=== PATIENT | female | born 1970 | race Caucasian/White ===

== ENCOUNTER 2018-07-24 14:14 | Inpatient (IN) | payer OTHER ==
[2018-07-24 18:38] LABS: ADD MAN DIFF? NO
[2018-07-24 18:40] LABS: WHITE BLOOD COUNT 7.1 10^3/ul (4.8-10.8)
[2018-07-24 18:40] LABS: BASOPHIL # 0.1 10^3/ul (0.0-0.1); BASOPHILS % 0.8 % (0.0-2.0); EOSINOPHILS # 0.1 10^3/ul (0.0-0.5); EOSINOPHILS % 1.4 % (0.0-7.0); HEMATOCRIT 42.5 % (37.0-47.0); HEMOGLOBIN 13.3 g/dl (12.0-16.0); LYMPHOCYTES # 2.9 10^3/ul (0.8-2.9); MEAN CORPUSCULAR HEMOGLOBIN 28.8 pg (29.0-33.0); MEAN CORPUSCULAR HGB CONC 31.3 g/dl (32.0-37.0); MEAN PLATELET VOLUME 9.3 fl (7.4-10.4); MONOCYTE # 0.4 10^3/ul (0.3-0.9); NEUTROPHIL # 3.7 10^3/ul (1.6-7.5); NEUTROPHILS % 52.5 % (39.0-77.0); PLATELET COUNT 378 10^3/UL (140-415); RED BLOOD COUNT 4.62 10^6/ul (4.20-5.40); RED CELL DISTRIBUTION WIDTH 14.4 % (11.5-14.5)
[2018-07-24 18:43] LABS: ADD UMIC YES; UR ASCORBIC ACID NEGATIVE (NEGATIVE); UR BACTERIA FEW /HPF (NONE SEEN); UR BILIRUBIN (Dip) NEGATIVE (NEGATIVE); UR BLOOD (Dip) 3+ mg/dL (NEGATIVE); UR CLARITY SLIGHTLY CLOUDY (CLEAR); UR COLOR YELLOW (YELLOW); UR GLUCOSE (Dip) NEGATIVE (NEGATIVE); UR KETONES (Dip) NEGATIVE (NEGATIVE); UR LEUKOCYTE ESTERASE (Dip) 1+ Leu/ul (NEGATIVE); UR MUCUS MANY /HPF (NONE SEEN); UR NITRITE (Dip) NEGATIVE (NEGATIVE); UR RBC 3 /HPF (0-5); UR SPECIFIC GRAVITY (Dip) 1.027 (1.003-1.030); UR SQUAMOUS EPITHELIAL CELL FEW /HPF (FEW); UR TOTAL PROTEIN (Dip) NEGATIVE (NEGATIVE); UR UROBILINOGEN (Dip) NEGATIVE (NEGATIVE); UR WBC 19 /HPF (0-5)
[2018-07-24 19:00] LABS: INR 0.88; PT RATIO 0.9
[2018-07-24 19:01] LABS: PARTIAL THROMBOPLASTIN TIME 26.8 Sec (23.0-35.0)
[2018-07-24 19:06] LABS: ALBUMIN 4.7 g/dl (3.3-4.9); ALBUMIN/GLOBULIN RATIO 1.34; ALKALINE PHOSPHATASE 94 IU/L (42-121); ANION GAP 11 (5-13); ASPARTATE AMINO TRANSFERASE 24 IU/L (15-46); BILIRUBIN,INDIRECT 0.2 mg/dl (0-1.1); BILIRUBIN,TOTAL 0.2 mg/dl (0.2-1.3); BLOOD UREA NITROGEN 26 mg/dl (7-20); CALCIUM 9.9 mg/dl (8.4-10.2); CARBON DIOXIDE 28 mmol/L (21-31); CHLORIDE 102 mmol/L (97-110); Estimated GFR > 60 mL/min (>60); GLUCOSE 99 mg/dl (70-220); SODIUM 141 mmol/L (135-144); TOTAL PROTEIN 8.2 g/dl (6.1-8.1)
[2018-07-24 19:10] LABS: ALANINE AMINOTRANSFERASE < 6 IU/L (13-69)
[2018-07-24] MEDS: ONDANSETRON 4 MG INJ IV (19:31)
[2018-07-24] MEDS: CEFTRIAXONE 1 GM/50 ML (PMX) 50 ML IVPB (19:31)
[2018-07-24] MEDS: HYDROmorphONE 0.5 MG/0.5 ML SYG IV ×2 (19:35→23:16)
[2018-07-24] MEDS ORDERED: METOCLOPRAMIDE 10 MG TAB PO (22:00)
[2018-07-24] MEDS: LAMOTRIGINE 100 MG TAB PO (23:18)
[2018-07-25] MEDS: ACETAMINOPHEN 325 MG TAB PO (05:46)
[2018-07-25] MEDS: HYDROmorphONE 0.5 MG/0.5 ML SYG IV ×4 (08:53→22:12)
[2018-07-25] MEDS: LAMOTRIGINE 100 MG TAB PO ×2 (08:53→21:07)
[2018-07-25] MEDS: DOCUSATE SODIUM 100 MG CAP PO ×2 (08:54→21:08)
[2018-07-25] MEDS: KETOROLAC 30 MG INJ IM (09:39)
[2018-07-25] MEDS: METOCLOPRAMIDE 10 MG INJ IV (11:44)
[2018-07-25] MEDS: HYDROmorphONE 1 MG/ML SYG IV (11:44)
[2018-07-25] MEDS ORDERED: DOCUSATE SODIUM 100 MG CAP PO ×2 (17:00→21:00)
[2018-07-25] MEDS ORDERED: LAMOTRIGINE 100 MG TAB PO (21:00)
[2018-07-25] MEDS: FAMOTIDINE 20 MG TAB PO (21:08)
[2018-07-25] MEDS: OXYCODONE/ACETAMINOPHEN (5/325) TAB PO (23:26)
[2018-07-26] MEDS: HYDROmorphONE 0.5 MG/0.5 ML SYG IV ×3 (04:50→21:12)
[2018-07-26 05:24] LABS: ADD MAN DIFF? NO
[2018-07-26 05:33] LABS: BASOPHILS % 0.5 % (0.0-2.0); EOSINOPHILS # 0.1 10^3/ul (0.0-0.5); EOSINOPHILS % 1.1 % (0.0-7.0); HEMATOCRIT 40.6 % (37.0-47.0); HEMOGLOBIN 12.7 g/dl (12.0-16.0); LYMPHOCYTES # 2.7 10^3/ul (0.8-2.9); LYMPHOCYTES % 42.2 % (15.0-51.0); MEAN CORPUSCULAR HEMOGLOBIN 28.8 pg (29.0-33.0); MEAN CORPUSCULAR HGB CONC 31.3 g/dl (32.0-37.0); MEAN CORPUSCULAR VOLUME 92.1 fl (82.0-101.0); MEAN PLATELET VOLUME 9.3 fl (7.4-10.4); MONOCYTE # 0.4 10^3/ul (0.3-0.9); MONOCYTES % 5.8 % (0.0-11.0); NEUTROPHIL # 3.3 10^3/ul (1.6-7.5); NEUTROPHILS % 50.2 % (39.0-77.0); PLATELET COUNT 360 10^3/UL (140-415); RED BLOOD COUNT 4.41 10^6/ul (4.20-5.40); RED CELL DISTRIBUTION WIDTH 13.7 % (11.5-14.5)
[2018-07-26 05:33] LABS: WHITE BLOOD COUNT 6.5 10^3/ul (4.8-10.8)
[2018-07-26 06:27] LABS: ALANINE AMINOTRANSFERASE 20 IU/L (13-69); ALBUMIN 3.8 g/dl (3.3-4.9); ALBUMIN/GLOBULIN RATIO 1.22; ALKALINE PHOSPHATASE 63 IU/L (42-121); ANION GAP 13 (5-13); ASPARTATE AMINO TRANSFERASE 18 IU/L (15-46); BILIRUBIN,INDIRECT 0.3 mg/dl (0-1.1); BILIRUBIN,TOTAL 0.3 mg/dl (0.2-1.3); BLOOD UREA NITROGEN 19 mg/dl (7-20); CALCIUM 9.4 mg/dl (8.4-10.2); CARBON DIOXIDE 31 mmol/L (21-31); CHLORIDE 100 mmol/L (97-110); CREATININE 0.84 mg/dl (0.44-1.00); Estimated GFR > 60 mL/min (>60); GLUCOSE 101 mg/dl (70-220); POTASSIUM 4.2 mmol/L (3.5-5.1); SODIUM 144 mmol/L (135-144); TOTAL PROTEIN 6.9 g/dl (6.1-8.1)
[2018-07-26] MEDS: OXYCODONE/ACETAMINOPHEN (5/325) TAB PO ×2 (07:39→17:04)
[2018-07-26] MEDS: ENOXAPARIN 30 MG/0.3 ML SYG SC (08:55)
[2018-07-26] MEDS: FAMOTIDINE 20 MG TAB PO ×2 (08:55→21:12)
[2018-07-26] MEDS: DOCUSATE SODIUM 100 MG CAP PO ×2 (08:55→21:12)
[2018-07-26] MEDS: LAMOTRIGINE 100 MG TAB PO ×2 (08:56→21:12)
[2018-07-26] MEDS: BISACODYL (EC) 5 MG TAB PO (09:02)
[2018-07-26] MEDS: METOCLOPRAMIDE 10 MG INJ IV (19:04)
[2018-07-27] MEDS: BISACODYL (EC) 5 MG TAB PO (08:19)
[2018-07-27] MEDS: LAMOTRIGINE 100 MG TAB PO ×2 (08:19→21:08)
[2018-07-27] MEDS: FAMOTIDINE 20 MG TAB PO ×2 (08:19→21:08)
[2018-07-27] MEDS: DOCUSATE SODIUM 100 MG CAP PO ×2 (08:19→21:00)
[2018-07-27] MEDS: ENOXAPARIN 30 MG/0.3 ML SYG SC (08:23)
[2018-07-27] MEDS: HYDROmorphONE 0.5 MG/0.5 ML SYG IV ×3 (12:01→23:27)
[2018-07-27] MEDS: OXYCODONE/ACETAMINOPHEN (5/325) TAB PO (15:20)
[2018-07-28] MEDS: HYDROmorphONE 0.5 MG/0.5 ML SYG IV ×3 (04:14→22:20)
[2018-07-28] MEDS: ENOXAPARIN 30 MG/0.3 ML SYG SC (09:00)
[2018-07-28] MEDS: FAMOTIDINE 20 MG TAB PO ×2 (09:10→20:53)
[2018-07-28] MEDS: LAMOTRIGINE 100 MG TAB PO ×2 (09:11→20:53)
[2018-07-28] MEDS: DOCUSATE SODIUM 100 MG CAP PO ×2 (09:11→20:53)
[2018-07-28] MEDS: OXYCODONE/ACETAMINOPHEN (5/325) TAB PO ×2 (13:56→23:45)
[2018-07-28] MEDS: BISACODYL (EC) 5 MG TAB PO (18:05)
[2018-07-28] MEDS: METOCLOPRAMIDE 10 MG INJ IV (22:20)
[2018-07-29] MEDS: HYDROmorphONE 0.5 MG/0.5 ML SYG IV ×6 (02:47→23:52)
[2018-07-29] MEDS ORDERED: SUGAMMADEX SODIUM 200 MG/2 ML VIAL IV (07:00)
[2018-07-29] MEDS: ENOXAPARIN 30 MG/0.3 ML SYG SC (09:00)
[2018-07-29] MEDS: FAMOTIDINE 20 MG TAB PO ×2 (09:00→21:00)
[2018-07-29] MEDS: LAMOTRIGINE 100 MG TAB PO ×2 (09:22→21:00)
[2018-07-29] MEDS: DOCUSATE SODIUM 100 MG CAP PO ×2 (09:22→21:00)
[2018-07-29] MEDS: OXYCODONE/ACETAMINOPHEN (5/325) TAB PO (09:32)
[2018-07-29] MEDS ORDERED: HEPARIN 1000 UNITS/ML 10 ML INJ (19:41)
[2018-07-29] MEDS ORDERED: SODIUM CL BACTERIOSTATIC 30 ML INJ (19:41)
[2018-07-29] MEDS ORDERED: PROPOFOL 20 ML (19:51)
[2018-07-29] MEDS ORDERED: ROCURONIUM 50 MG INJ (19:51)
[2018-07-29] MEDS ORDERED: MIDAZOLAM 1 MG/ML 2 ML INJ (19:52)
[2018-07-29] MEDS ORDERED: LIDOCAINE 1% (MDV) 20 ML INJ (19:53)
[2018-07-29] MEDS ORDERED: CEFAZOLIN 1 GM INJ (20:25)
[2018-07-29] MEDS ORDERED: ONDANSETRON 4 MG INJ (20:26)
[2018-07-29] MEDS ORDERED: DEXAMETHASONE 4 MG/ML 5 ML INJ (20:26)
[2018-07-29] MEDS ORDERED: hydrALAzine 20 MG INJ (21:01)
[2018-07-29] MEDS ORDERED: ROPIVACAINE 0.5 % 30 ML VIAL (21:48)
[2018-07-29] MEDS ORDERED: GLYCOPYRROLATE 0.4 MG INJ (22:12)
[2018-07-29] MEDS ORDERED: NEOSTIGMINE 3 MG/3 ML SYRINGE (22:12)
[2018-07-29] MEDS ORDERED: FENTAnyl 50 MCG/ML VIAL (22:14)
[2018-07-29] MEDS ORDERED: HYDROmorphONE 0.5 MG/0.5 ML SYG IV ×2 (23:00)
[2018-07-29] MEDS ORDERED: LABETALOL HCL 20MG INJ IV (23:00)
[2018-07-29] MEDS ORDERED: hydrALAzine 20 MG INJ IV (23:00)
[2018-07-29] MEDS: CEFAZOLIN 1 GM INJ (23:31)
[2018-07-29] MEDS: HEMOSTATIC MATRIX SYG ZFS (23:32)
[2018-07-29] MEDS: THROMBIN 5000 UNIT VIAL (23:32)
[2018-07-29] MEDS: GELATIN SIZE 100 SPONGE (23:32)
[2018-07-30] MEDS: HYDROmorphONE 0.5 MG/0.5 ML SYG IV ×3 (00:08→04:08)
[2018-07-30 04:58] LABS: ADD MAN DIFF? NO
[2018-07-30 05:01] LABS: ABNORMAL IP MESSAGE 1; BASOPHILS % 0.3 % (0.0-2.0); HEMOGLOBIN 13.3 g/dl (12.0-16.0); LYMPHOCYTES # 0.6 10^3/ul (0.8-2.9); LYMPHOCYTES % 5.7 % (15.0-51.0); MEAN CORPUSCULAR HEMOGLOBIN 28.7 pg (29.0-33.0); MEAN CORPUSCULAR HGB CONC 31.7 g/dl (32.0-37.0); MEAN CORPUSCULAR VOLUME 90.7 fl (82.0-101.0); MEAN PLATELET VOLUME 9.1 fl (7.4-10.4); MONOCYTE # 0.4 10^3/ul (0.3-0.9); MONOCYTES % 3.7 % (0.0-11.0); NEUTROPHIL # 8.8 10^3/ul (1.6-7.5); NEUTROPHILS % 89.7 % (39.0-77.0); PLATELET COUNT 378 10^3/UL (140-415); RED BLOOD COUNT 4.63 10^6/ul (4.20-5.40); RED CELL DISTRIBUTION WIDTH 13.7 % (11.5-14.5)
[2018-07-30 05:01] LABS: WHITE BLOOD COUNT 9.8 10^3/ul (4.8-10.8)
[2018-07-30 05:26] LABS: ALANINE AMINOTRANSFERASE 24 IU/L (13-69); ALBUMIN 4.3 g/dl (3.3-4.9); ALBUMIN/GLOBULIN RATIO 1.22; ALKALINE PHOSPHATASE 71 IU/L (42-121); ANION GAP 14 (5-13); ASPARTATE AMINO TRANSFERASE 30 IU/L (15-46); BILIRUBIN,INDIRECT 0.3 mg/dl (0-1.1); BILIRUBIN,TOTAL 0.3 mg/dl (0.2-1.3); BLOOD UREA NITROGEN 18 mg/dl (7-20); CALCIUM 9.6 mg/dl (8.4-10.2); CARBON DIOXIDE 28 mmol/L (21-31); CHLORIDE 99 mmol/L (97-110); CREATININE 0.82 mg/dl (0.44-1.00); Estimated GFR > 60 mL/min (>60); GLUCOSE 156 mg/dl (70-220); POTASSIUM 4.5 mmol/L (3.5-5.1); SODIUM 141 mmol/L (135-144); TOTAL PROTEIN 7.8 g/dl (6.1-8.1)
[2018-07-30 05:48] LABS: POSITIVE DIFF @See below
[2018-07-30] MEDS: HYDROmorphONE 1 MG/ML SYG IV ×5 (06:15→21:16)
[2018-07-30] MEDS: DOCUSATE SODIUM 100 MG CAP PO ×2 (08:13→20:14)
[2018-07-30] MEDS: LAMOTRIGINE 100 MG TAB PO ×2 (08:13→20:15)
[2018-07-30] MEDS: FAMOTIDINE 20 MG TAB PO ×2 (08:13→20:14)
[2018-07-30] MEDS ORDERED: GLYCOPYRROLATE 0.4 MG INJ (12:20)
[2018-07-30] MEDS ORDERED: PROPOFOL 20 ML (12:20)
[2018-07-30] MEDS ORDERED: CEFAZOLIN 1 GM INJ (12:20)
[2018-07-30] MEDS ORDERED: MIDAZOLAM 1 MG/ML 2 ML INJ (12:20)
[2018-07-30] MEDS ORDERED: ROCURONIUM 50 MG INJ (12:20)
[2018-07-30] MEDS ORDERED: NEOSTIGMINE 3 MG/3 ML SYRINGE (12:20)
[2018-07-30] MEDS ORDERED: DEXAMETHASONE 4 MG/ML 5 ML INJ (12:21)
[2018-07-30] MEDS ORDERED: FENTAnyl 50 MCG/ML VIAL (12:21)
[2018-07-30] MEDS ORDERED: ONDANSETRON 4 MG INJ (12:21)
[2018-07-30] MEDS: POLYMYXIN/BACITRACIN 1L IRRIG (13:27)
[2018-07-30] MEDS: ROPIVACAINE 0.5 % 30 ML VIAL ×2 (13:31)
[2018-07-30] MEDS: GELATIN SIZE 100 SPONGE (14:17)
[2018-07-30] MEDS: THROMBIN 5000 UNIT VIAL (14:17)
[2018-07-30] MEDS ORDERED: SUGAMMADEX SODIUM 200 MG/2 ML VIAL IV (14:41)
[2018-07-30] MEDS ORDERED: ALBUTEROL 0.083% (NEB) 2.5 MG/3 ML AMP HHN (15:00)
[2018-07-30] MEDS ORDERED: HALOPERIDOL 5 MG INJ IV (15:00)
[2018-07-30] MEDS ORDERED: MIDAZOLAM 1 MG/ML 2 ML INJ IV (15:00)
[2018-07-30] MEDS ORDERED: TRIMETHOBENZAMIDE 100 MG/ML VIAL IM (15:00)
[2018-07-30] MEDS ORDERED: ONDANSETRON 4 MG INJ IV (15:00)
[2018-07-30] MEDS ORDERED: IPRATROPIUM (NEB) 0.5 MG/2.5 ML AMP HHN (15:00)
[2018-07-30] MEDS ORDERED: MEPERIDINE 25 MG INJ IV (15:00)
[2018-07-30] MEDS ORDERED: DIPHENHYDRAMINE 50 MG INJ IV (15:00)
[2018-07-30] MEDS ORDERED: METOCLOPRAMIDE 10 MG INJ IV (15:00)
[2018-07-30] MEDS ORDERED: LABETALOL HCL 20MG INJ IV (15:00)
[2018-07-30] MEDS ORDERED: HYDROmorphONE 0.5 MG/0.5 ML SYG IV ×3 (15:00)
[2018-07-30] MEDS ORDERED: EPHEDrine SULFATE 50 MG/5 ML SYG IV (15:00)
[2018-07-30] MEDS ORDERED: FENTAnyl 50 MCG/ML VIAL IV ×3 (15:00)
[2018-07-30] MEDS ORDERED: hydrALAzine 20 MG INJ IV (15:00)
[2018-07-30] MEDS: CEFAZOLIN 2 GM/50 ML (PMX) 50 ML IVPB (16:33)
[2018-07-30] MEDS: OXYCODONE/ACETAMINOPHEN (5/325) TAB PO ×2 (16:39→20:27)
[2018-07-31] MEDS: CEFAZOLIN 2 GM/50 ML (PMX) 50 ML IVPB ×4 (00:12→21:27)
[2018-07-31] MEDS: HYDROmorphONE 1 MG/ML SYG IV ×3 (00:31→14:06)
[2018-07-31] MEDS: OXYCODONE/ACETAMINOPHEN (5/325) TAB PO ×2 (02:41→07:08)
[2018-07-31 05:30] LABS: ADD MAN DIFF? NO
[2018-07-31 05:51] LABS: BASOPHILS % 0.3 % (0.0-2.0); HEMATOCRIT 33.4 % (37.0-47.0); HEMOGLOBIN 10.5 g/dl (12.0-16.0); LYMPHOCYTES # 1.3 10^3/ul (0.8-2.9); LYMPHOCYTES % 16.8 % (15.0-51.0); MEAN CORPUSCULAR HEMOGLOBIN 28.8 pg (29.0-33.0); MEAN CORPUSCULAR HGB CONC 31.4 g/dl (32.0-37.0); MEAN CORPUSCULAR VOLUME 91.5 fl (82.0-101.0); MEAN PLATELET VOLUME 9.6 fl (7.4-10.4); MONOCYTE # 0.8 10^3/ul (0.3-0.9); MONOCYTES % 10.3 % (0.0-11.0); NEUTROPHIL # 5.5 10^3/ul (1.6-7.5); NEUTROPHILS % 72.1 % (39.0-77.0); PLATELET COUNT 311 10^3/UL (140-415); RED BLOOD COUNT 3.65 10^6/ul (4.20-5.40); RED CELL DISTRIBUTION WIDTH 13.8 % (11.5-14.5)
[2018-07-31 05:51] LABS: WHITE BLOOD COUNT 7.6 10^3/ul (4.8-10.8)
[2018-07-31 05:59] LABS: ANION GAP 9 (5-13); BLOOD UREA NITROGEN 11 mg/dl (7-20); CALCIUM 8.9 mg/dl (8.4-10.2); CARBON DIOXIDE 33 mmol/L (21-31); CHLORIDE 99 mmol/L (97-110); CREATININE 0.54 mg/dl (0.44-1.00); Estimated GFR > 60 mL/min (>60); GLUCOSE 114 mg/dl (70-220); POTASSIUM 4.5 mmol/L (3.5-5.1); SODIUM 141 mmol/L (135-144)
[2018-07-31] MEDS: LAMOTRIGINE 100 MG TAB PO ×2 (08:23→21:27)
[2018-07-31] MEDS: DOCUSATE SODIUM 100 MG CAP PO ×2 (08:23→21:27)
[2018-07-31] MEDS: FAMOTIDINE 20 MG TAB PO ×2 (08:23→21:27)
[2018-07-31] MEDS: KETOROLAC 15 MG INJ IV ×2 (12:24→17:43)
[2018-07-31] MEDS: OXYCODONE/ACETAMINOPHEN (10/325) TAB PO ×2 (18:44→22:14)
[2018-08-01] MEDS: KETOROLAC 15 MG INJ IV ×4 (00:39→18:20)
[2018-08-01] MEDS: OXYCODONE/ACETAMINOPHEN (10/325) TAB PO ×5 (03:53→20:20)
[2018-08-01 05:13] LABS: ADD MAN DIFF? NO
[2018-08-01] MEDS: CEFAZOLIN 2 GM/50 ML (PMX) 50 ML IVPB ×3 (05:13→22:10)
[2018-08-01] MEDS: BISACODYL (EC) 5 MG TAB PO (05:13)
[2018-08-01 05:16] LABS: BASOPHILS % 0.5 % (0.0-2.0); EOSINOPHILS # 0.3 10^3/ul (0.0-0.5); EOSINOPHILS % 3.3 % (0.0-7.0); HEMATOCRIT 31.6 % (37.0-47.0); HEMOGLOBIN 9.9 g/dl (12.0-16.0); LYMPHOCYTES # 2.7 10^3/ul (0.8-2.9); LYMPHOCYTES % 32.3 % (15.0-51.0); MEAN CORPUSCULAR HEMOGLOBIN 28.8 pg (29.0-33.0); MEAN CORPUSCULAR HGB CONC 31.3 g/dl (32.0-37.0); MEAN CORPUSCULAR VOLUME 91.9 fl (82.0-101.0); MEAN PLATELET VOLUME 9.7 fl (7.4-10.4); MONOCYTE # 0.7 10^3/ul (0.3-0.9); MONOCYTES % 8.9 % (0.0-11.0); NEUTROPHIL # 4.5 10^3/ul (1.6-7.5); NEUTROPHILS % 54.8 % (39.0-77.0); PLATELET COUNT 308 10^3/UL (140-415); RED BLOOD COUNT 3.44 10^6/ul (4.20-5.40); RED CELL DISTRIBUTION WIDTH 14.4 % (11.5-14.5)
[2018-08-01 05:16] LABS: WHITE BLOOD COUNT 8.3 10^3/ul (4.8-10.8)
[2018-08-01 05:36] LABS: ANION GAP 7 (5-13); BLOOD UREA NITROGEN 20 mg/dl (7-20); CARBON DIOXIDE 31 mmol/L (21-31); CHLORIDE 102 mmol/L (97-110); CREATININE 0.74 mg/dl (0.44-1.00); Estimated GFR > 60 mL/min (>60); GLUCOSE 97 mg/dl (70-220); POTASSIUM 3.9 mmol/L (3.5-5.1); SODIUM 140 mmol/L (135-144)
[2018-08-01] MEDS: FAMOTIDINE 20 MG TAB PO ×2 (10:03→20:20)
[2018-08-01] MEDS: DOCUSATE SODIUM 100 MG CAP PO ×2 (10:03→20:20)
[2018-08-01] MEDS: LAMOTRIGINE 100 MG TAB PO ×2 (10:07→20:21)
[2018-08-02] MEDS: KETOROLAC 15 MG INJ IV ×4 (00:09→17:34)
[2018-08-02] MEDS: OXYCODONE/ACETAMINOPHEN (10/325) TAB PO ×5 (00:12→16:52)
[2018-08-02] MEDS: CEFAZOLIN 2 GM/50 ML (PMX) 50 ML IVPB (06:11)
[2018-08-02] MEDS: MAGNESIUM HYDROXIDE 30ML CUP PO (08:30)
[2018-08-02] MEDS: FAMOTIDINE 20 MG TAB PO (08:30)
[2018-08-02] MEDS: LAMOTRIGINE 100 MG TAB PO (08:31)
[2018-08-02] MEDS: DOCUSATE SODIUM 100 MG CAP PO (08:31)
== END 2018-08-02 18:30 | disposition home or self-care (01) | DRG 454 ==
LOC: MS1 08-01 04:10 → FTE 14:14 → ICU 07-29 22:32 → MS1 18:04
PROC: 0SG00A0 Fusion of Lumbar Vertebral Joint with Interbody Fusion Device, Anterior Approach, Anterior Column, Open Approach (ICD-10-PCS; principal; 2018-07-29 19:00)
PROC: 0SB20ZZ Excision of Lumbar Vertebral Disc, Open Approach (ICD-10-PCS; 2018-07-29 19:00)
PROC: 0SG00K1 Fusion of Lumbar Vertebral Joint with Nonautologous Tissue Substitute, Posterior Approach, Posterior Column, Open Approach (ICD-10-PCS; 2018-07-29 20:01)
PROC: 0SB00ZZ Excision of Lumbar Vertebral Joint, Open Approach (ICD-10-PCS; 2018-07-29 20:01)
DX: M47.26 Other spondylosis with radiculopathy, lumbar region (principal); Z68.41 Body mass index [BMI] 40.0-44.9, adult; M48.061 Spinal stenosis, lumbar region without neurogenic claudication; M71.38 Other bursal cyst, other site; E66.01 Morbid (severe) obesity due to excess calories; E78.5 Hyperlipidemia, unspecified; F31.9 Bipolar disorder, unspecified; Z98.1 Arthrodesis status; W19.XXXA Unspecified fall, initial encounter
CPT/HCPCS: 36415; 72100; 72110; 72131; 72158; 72192; 80048; 80053; 81001; 81025; 83735; 85025; 85610; 85730; 86850; 86900; 86901; 86920; 87081; 88304; 97116; 97161; 97530; 99217; 99285-25